=== PATIENT | male | born 1945 | race Caucasian/White ===

== ENCOUNTER 2024-07-29 12:41 | Emergency (ER) | payer MEDICARE ==
[~2024-07-29] VITALS: Ht 170.2 cm; Wt 65.9 kg
[2024-07-29] MEDS: morphine 4 MG/ML inj SYRINge IM ONE (15:01)
[2024-07-29 15:12] VITALS: BP 148/82; PULSE 98; RESP 16; TEMP 98.6; O2SAT 99
== END 2024-07-29 15:14 | disposition home or self-care (01) ==
LOC: ER 12:42
DX: M25.551 Pain in right hip (principal)
CPT/HCPCS: 73502; 73552; 96372; 99284; J2270